=== PATIENT | female | born 1970 | race Caucasian/White ===

== ENCOUNTER → 2017-12-28 13:57 | Outpatient (CLI) | payer OTHER, SELFPAY ==
[2017-12-28 16:07] LABS: Progesterone Level 0.49 ng/mL (See Comment)
[2017-12-28 16:13] LABS: Pregnancy, Serum, hCG Quali. NEGATIVE Negative (0-9 Nonpreg)
== END ==
PROVIDERS: Visit Provider Obstetrics & Gynecology
DX: Z30.430 Encounter for insertion of intrauterine contraceptive device (principal)
CPT/HCPCS: 36415; 84144; 84703

== ENCOUNTER → 2017-12-30 16:46 | Outpatient (CLI) | payer OTHER, SELFPAY ==
[2017-12-30 22:25] LABS: Chlamydia Trachomatis by PCR Negative (Negative); Neisserai gonorrhoeae by PCR Negative (Negative); Probe Check PASS; Sample Adequacy Control PASS; Specimen Processing Control PASS
== END ==
PROVIDERS: Visit Provider Obstetrics & Gynecology
DX: Z11.3 Encounter for screening for infections with a predominantly sexual mode of transmission (principal)
CPT/HCPCS: 87491; 87591

== ENCOUNTER → 2018-09-29 17:28 | Outpatient (CLI) | payer OTHER, SELFPAY ==
[2018-10-04 14:40] LABS: HPV Reflexed? NOT INDICATED
== END ==
PROVIDERS: Family Provider Internal Medicine; PCP Internal Medicine; Referring Provider Obstetrics & Gynecology; Visit Provider Obstetrics & Gynecology
DX: Z12.4 Encounter for screening for malignant neoplasm of cervix (principal)
CPT/HCPCS: 88175; G0145

== ENCOUNTER → 2018-10-22 07:40 | Outpatient (CLI) | payer OTHER, SELFPAY ==
--- NOTE | 2018-10-22 07:45 | BI_ITS ---
MAMMOGRAPHY - BILATERAL SCREENING REASON FOR EXAM: Female, 48 years old. Routine annual screening examination. PERTINENT HISTORY: Grandmother with breast cancer. History of lateral breast reduction surgery TECHNIQUE: Digital bilateral breast brendan (3D mammographic acquisition) in the CC and MLO projections. 2-D mediolateral oblique (MLO) and craniocaudad (CC) views of both breasts were obtained. CAD: Full Field Digital Mammography with Computer Added Detection was performed. COMPARISON: Comparison is made with prior examination March 15, 2012. FINDINGS: Breast Composition: There are scattered areas of fibroglandular density. There are no dominant masses or suspicious calcifications. Since prior study, the amount of breast tissue has decreased in keep with the prior breast reduction. No other significant abnormalities are identified. BI/SCREENING MAMM (CAD), BILAT IMPRESSION: Stable bilateral screening mammogram. Yearly follow-up mammogram recommended. (A) ASSESSMENT CATEGORY: BIRADS Category 1: Negative. A letter regarding these results will be sent to the patient by the facility within 30 days. Approximately 10% of breast cancers are not detected by mammography. A normal mammogram should not delay biopsy of a clinically suspicious abnormality. [id number] Electronically Signed: Andera Schwartz, at 11:00 EDT , Service support ,
== END ==
PROVIDERS: Family Provider Internal Medicine; PCP Internal Medicine; Referring Provider Obstetrics & Gynecology; Visit Provider Obstetrics & Gynecology
DX: Z12.31 Encounter for screening mammogram for malignant neoplasm of breast (principal)
CPT/HCPCS: 77063; 77067

== ENCOUNTER → 2020-03-01 14:53 | Outpatient (CLI) | payer OTHER, SELFPAY ==
[2020-03-01 22:17] LABS: Follicle Stimulating Hormone 5.5 mIU/mL; Luteinizing Hormone 3.7 mIU/mL; Prolactin 14.1 ng/mL
[2020-03-05 18:04] LABS: Testosterone Free 1.9 pg/mL (0.0-4.2)
== END ==
PROVIDERS: Visit Provider Student in an Organized Health Care Education/Training Program
DX: L65.9 Nonscarring hair loss, unspecified (principal)
CPT/HCPCS: 36415; 82627; 83001; 83002; 84146; 84402; 82626

== ENCOUNTER → 2020-03-21 07:37 | Outpatient (CLI) | payer OTHER, SELFPAY ==
--- NOTE | 2020-03-21 07:40 | BI_ITS ---
MAMMOGRAPHY - BILATERAL SCREENING REASON FOR EXAM: Female, 49 years old. Routine annual screening examination. PERTINENT HISTORY: Grandmother with breast cancer. TECHNIQUE: Digital bilateral breast julieta (3D mammographic acquisition) in the CC and MLO projections. 2-D mediolateral oblique (MLO) and craniocaudad (CC) views of both breasts were obtained. CAD: Full Field Digital Mammography with Computer Added Detection was performed. COMPARISON: Comparison is made with prior study dated 10/22/2018. FINDINGS: Breast Composition: There are scattered areas of fibroglandular density. There are no dominant masses or suspicious calcifications. Stable small benign appearing bilateral axillary lymph nodes. No other significant abnormalities are identified. There has been no significant change since the prior study. BI/SCREEN MAMM (CAD) W/JULIETA BILAT IMPRESSION: Stable bilateral screening mammogram. Yearly follow-up mammogram recommended. (A) ASSESSMENT CATEGORY: BIRADS Category 2: Benign. A letter regarding these results will be sent to the patient by the facility within 30 days. Approximately 10% of breast cancers are not detected by mammography. A normal mammogram should not delay biopsy of a clinically suspicious abnormality. [id number] Electronically Signed: Andrea Schwartz, at 9:30 EDT , Service support ,
== END ==
PROVIDERS: PCP Internal Medicine; Referring Provider Student in an Organized Health Care Education/Training Program; Visit Provider Student in an Organized Health Care Education/Training Program
DX: Z12.31 Encounter for screening mammogram for malignant neoplasm of breast (principal); Z80.3 Family history of malignant neoplasm of breast
CPT/HCPCS: 77063; 77067

== ENCOUNTER → 2020-05-31 15:44 | Outpatient (CLI) | payer OTHER, SELFPAY ==
[2020-05-31 17:24] LABS: Color, Urine Straw (Yellow); Glucose, Dipstick Normal (Normal); Ketone-Dipstick Negative (Negative); Leukocyte Esterase-Dipstick Negative /ul (Negative); Nitrite-Dipstick Negative (Negative); Occult Blood-Urine Negative /ul (Negative); Protein-Dipstick Negative (Negative); Urine Bilirubin Dipstick Negative (Negative); Urine Clarity Clear (Clear); Urine Urobilinogen Normal (Normal)
[2020-06-01 08:51] LABS: Bacteria 0 SEEN /hpf (None Seen); Mucous, Urine 0 SEEN /hpf (<or=2+); Red Blood Cells-Urine 0 SEEN /hpf (0-5); White Blood Cells 0 SEEN /hpf (0-5)
[2020-06-01 09:36] LABS: Squamous Epithelial Cells - UA 0-5 SEEN /hpf (5-10)
== END ==
PROVIDERS: PCP Internal Medicine; Visit Provider Obstetrics & Gynecology
DX: N39.3 Stress incontinence (female) (male) (principal)
CPT/HCPCS: 81001; 81002; 87086; 87088

== ENCOUNTER 2020-07-26 07:11 | Day surgery (SDC) | payer OTHER, SELFPAY ==
[2020-07-23 12:02] LABS: Hematocrit 41.5 % (37-47); Hemoglobin 13.8 g/dL (12.0-15.0); Mean Corp Hgb Conc 33.3 g/dL (32-36); Mean Corpuscular Hgb 29.1 pg (27.0-32.0); Mean Corpuscular Volume 87.4 fL (81-99); Mean Platelet Vol. 11.4 fl (6.2-12.0); Platelet Count 285 K/mm3 (150-450); RBC Distribution Width CV 14.9 % (11.6-14.6); RBC Distribution Width SD 45.1 fl (35.1-43.9); Red Blood Count 4.75 M/mm3 (4.2-5.4); White Blood Count 10.1 K/mm3 (4.4-11.0)
[2020-07-26] VITALS (7 sets, daily range): BP systolic 114–126; BP diastolic 53–83; PULSE 69–87; RESP 14–16; TEMP 36.3–36.6; O2SAT 94–100; BMI 32.4
--- NOTE | 2020-07-26 07:30 | HP.PCM_ITS ---
History and Physical Surgical History and Physical Name: AASHISH JENSEN Age: 49 Date of : 1970 Aashish Jensen, a 49 year old female 2 0 0 0 2, presents for Transvaginal tape, cystoscopy. Possible anterior repair, possible posterior repair on July 26, 2020 at 7:30. -- Aashish is 49 yrs old here for evaluation of urinary incontinence onset in the past year, more frequent in the past 3-4 months. In the past 2 months she has become sexually active w/a new partner after being for 6 yrs. Experienced urinary incontinence during IC, which was very upsetting to her. Hx x 2 delivering one 8 # and one 9# baby. MIrena in place; having monthly periods. MEDICATIONS HISTORY: Current medications prescribed by our practice are: 1. Mirena 20 mcg/24 hours (5 yrs) 52 mg intrauterine device, placed 12/30/2017 Patient is also takin. levothyroxine 125 mcg tablet ALLERGIES: No Known Allergies Infections - Chicken pox Illnesses - none Hospitalizations - Childbirth Review of Systems: GENERAL - Denies fever, or chills SKIN - Denies skin changes EYES - Denies visual changes EARS - Denies difficulty hearing NOSE - Denies nasal congestion or bleeding MOUTH - Denies sore throat or difficulty swallowing NECK - Denies pain or swelling RESPIRATORY - Denies shortness of breath or wheezing CARDIOVASCULAR - Denies palpitations or chest pain GASTROINTESTINAL - Denies nausea, vomiting, diarrhea, constipation GENITOURINARY - urinary incontinence MUSCULOSKELETAL - Denies joint or muscle pain NEUROLOGICAL - Denies localized numbness or weakness PSYCHIATRIC - Denies depression or anxiety ENDOCRINE - Denies heat or cold intolerance, weight loss or gain HEMATO-IMMUNOLOGIC - Denies excessive bleeding with cuts SOCIAL HISTORY: Alcohol Use - occasionally Smoking - denies smoking Diet - balanced Diet Exercise - regular Seat Belt Use - always Employer - [employer]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 none ; - PHYSICAL EXAM BP- 104/80 Sitting, Right arm, regular cuff Temp- 97 forehead Weight- 181.70701 lbs Height- 63 inch BMI:32.13 CONSTITUTIONAL - NAD, well nourished, and well developed SKIN - No rash, lesions, or ulcers HEENT - Normocephalic, PERRLA, EOMI NECK - No nodes, no nuchal rigidity and thyroid normal size and texture LYMPH NODES - Palpation of lymph nodes in neck and groins within normal limits LUNGS - CTA x2 without wheezes, crackles or rales CARDIAC - Regular rate and rhythm without rubs, murmurs, or gallops ABDOMEN - Without hepatosplenomegaly, distention, masses, rebound, or guarding; normal bowel sounds; no hernias EXTREMITIES - No edema or calf tenderness NEUROLOGICAL - Cranial nerves II-XII grossly intact PSYCHIATRIC - A and O to time, place, person, mood and affect External Genital Vagina - non-tender without lesions Urethra/Urethral Meatus - positive cough test Bladder - grade 1-2 cystocele Vagina - vaginal summers are pink and moist without loss of rugae and no evidence of atrophy Cervix - without cervical motion tenderness and has normal size and features without evident lesions and IUD strings noted Uterus - 5-6 cm in size, mobile and nontender Adnexa - clear without masses or tenderness Rectal - grade1 rectocele ASSESSMENT/PLAN: 1. Stress Incontinence (female) (male) Pt with leakage when laughs, coughs, sneezes, strains. Pt with no urgency, dysuria, or nocturia. Pos cough test. Post void 50cc. Pt educated on results, elects for TVT with cystoscopy, possible anterior repair, possible posterior repair. R/b/a discussed Stress incontinence
[2020-07-26 07:39] LABS: Internal QC Validated? YES +Cl - CLEAR BKGD; Pregnancy, Urine Negative Negative
[2020-07-26] MEDS: Lactated Ringers 1,000 ML 120 ML IV ×2 (07:57→11:12)
[2020-07-26] MEDS: Cefazolin 2 GM in 0.9% Normal Saline 100 ML IV (09:05)
[2020-07-26] MEDS: Lidocaine 1% /Epi 1:100 (20ml) 20 ML Vial (09:12)
--- NOTE | 2020-07-26 10:23 | DCINST_ITS ---
Discharge Diet: No Restrictions Discharge Activity: Return to Normal Activity, May Not Drive, May not drive while taking narcotic pain medications., May Shower, - - no tub baths for 2 weeks May resume sexual activity in: 4-6 weeks Lifting Restrictions: no lifting over 25 pounds for 2 weeks Call your doctor if your incision/area has: Continuous Slow Oozing, Foul Smelling Discharge Call your doctor if you observe: Fever of 101 or Higher, Shortness of breath, Chest pain Allergies/Adverse Reactions: Allergies No Known Allergies Allergy (Verified 07/19/20 10:30) Medications to take at Discharge Levothyroxine [Synthroid] 175 mcg PO DAILY 07/19/20 Primary Care Physician: Anupama Montemayor DO [Primary Care Provider] - Test Results: Test results from this visit will be discussed in further detail at your follow- up appointment, if applicable. Please Follow Up With: Sergio Gunter MD When: 2 weeks
--- NOTE | 2020-07-26 10:25 | OP.PCM_ITS ---
Report of Operation Date of Procedure: 07/26/20 Pre-Operative Diagnosis: Stress urinary incontinence Post-Operative Diagnosis: Stress urinary incontinence Surgery/Procedure Performed:: Transvaginal tape, cystoscopy Description of Surgical Findings:: Surgeon: Sergio Gunter MD Anesthesia: MAC EBL: 25 cc Urine output: 100 cc IV fluids: 900 cc Complications: None Specimens: None Findings: Minimal cystocele, minimal rectocele. No apical prolapse. After trocar placement cystoscopy was performed no perforations or pathology were noted. Consent: Patient with stress urinary incontinence in need of transvaginal tape and cystoscopy. Patient understands the risk of the procedure include but are not limited to visceral or vascular injury, prolonged hospitalization, blood loss need for transfusion, reoperation. Patient also understands the risk of transvaginal mesh along with need for Murphy catheter or long-term intermittent catheterization. Patient states understanding and wishes to proceed. All questions were answered consent was signed. Procedure: Patient was brought back to the OR where MAC anesthesia was found to be adequate. 2 g of Ancef were given for infection prophylaxis. Patient was prepared and draped in dorsolithotomy position in [facility] stirrups. Murphy catheter was inserted bladder was drained. Vaginal mucosa was injected with 1% lidocaine with epinephrine. 1-1/2 cm vaginal mucosa incision was made 1 cm cep halad to the urethra in the midline. Vaginal mucosa was dissected from the periurethral fascia and dissection was created retropubically. Midline of the pubis was palpated and 2 stab incisions were made at the superior aspect of the pubic bone 2 cm bilaterally from the midline. Murphy catheter stylette was inserted and bladder was deviated to the patient's left right mesh Gyne TVT exact trocar was inserted at site of dissection trocar was inserted along the posterior aspect of the pubic bone through the suprapubic stab incision. In similar fashion the bladder was deviated to the right and the left trocar was placed posterior to the pubic bone through vaginal dissection and through the the suprapubic skin incision. Murphy catheter was removed and cystoscopy was performed. Above findings were noted. No signs of trocar perforation pathology or mesh. Bladder was drained. Trochars were removed and and transvaginal tape was appropriately placed. Good hemostasis was noted. Vaginal mucosa was closed in a continuous running locked fashion. Mesh at suprapubic skin incisions was cut at the level of the skin. And incisions were closed with skin adhesive. Good hemostasis was noted. All counts correct x2. Patient tolerated procedure well was brought to recovery in stable condition. golf course ranger: Taina Lu
== END 2020-07-26 12:01 | disposition home or self-care (01) ==
LOC: SDC 07:12 → AC 07:13
PROVIDERS: Anesthesiology; PCP Internal Medicine; Referring Provider Obstetrics & Gynecology; Visit Provider Obstetrics & Gynecology
PROC: (CPT 57260; principal; 2020-07-26 08:25)
DX: N39.3 Stress incontinence (female) (male) (principal)
CPT/HCPCS: 52000; 57288; 36415; 81025; 85027; 86850; 86900; 86901; J7120; J2405

== ENCOUNTER → 2020-09-18 09:29 | Outpatient (CLI) | payer OTHER, SELFPAY ==
[2020-07-26 07:39] VITALS: BMI 32.4
--- NOTE | 2020-09-18 09:33 | RAD_ITS ---
STUDY: X-RAY - PELVIS AND BILATERAL HIPS REASON FOR EXAM: Female, 49 years old. Bilateral hip pain. TECHNIQUE: AP view of the pelvis.? 2 views of the right hip, and 2 views of the left hip were obtained. COMPARISON: None. FINDINGS: There is a non-specific bowel gas pattern. IUD. Phleboliths. Normal bilateral iliac wings, sacroiliac joints and visualized sacrum. Normal bilateral superior and inferior pubic rami. Normal pubic symphysis. Normal bilateral ischial tuberosities. Normal visualized right femoral head. Normal right acetabulum. Normal right hip joint. Normal visualized left femoral head. Normal left acetabulum. Normal left hip joint. RAD/Hips B/L min 2 views w/ Pelvis IMPRESSION: No abnormality of the pelvis or either hip. Electronically Signed: Kameron Smith MD at 15:07 EDT , Service support ,
--- NOTE | 2020-09-18 09:35 | RAD_ITS ---
STUDY: X-RAY - LUMBAR SPINE REASON FOR EXAM: Female, 49 years old. Hip pain. TECHNIQUE: 4 view(s) of the lumbar spine were obtained. COMPARISON: None FINDINGS: Normal lumbar lordosis. There is no substantial scoliosis. There is a normal alignment of the vertebrae. Normal vertebral bodies and endplates. Diffuse facet sclerosis. Mild intervertebral disc space narrowing at L2-3 and L3-4 with small osteophytes. The soft tissue structures are unremarkable. RAD/L/S Spine Min 4 Views IMPRESSION: Mild lumbar spondylosis at L2-3 and L3-4 Electronically Signed: Kameron Smith MD at 15:08 EDT , Service support ,
== END ==
PROVIDERS: PCP Internal Medicine; Referring Provider Internal Medicine; Visit Provider Internal Medicine
DX: M25.551 Pain in right hip (principal); M25.552 Pain in left hip
CPT/HCPCS: 72110; 73521

== ENCOUNTER → 2021-01-04 09:04 | Outpatient (CLI) | payer OTHER, SELFPAY ==
[2020-07-26 07:39] VITALS: BMI 32.4
--- NOTE | 2021-01-04 09:15 | RAD_ITS ---
STUDY: X-RAY - RIGHT SHOULDER REASON FOR EXAM: Female, 50 years old. PAIN IN SHOULDER TECHNIQUE: 4 view(s) of the shoulder. COMPARISON: None. FINDINGS: No acute fracture, dislocation or osseous destruction. Minimal glenohumeral joint arthrosis. Mild acromioclavicular joint arthrosis. No significant soft tissue swelling. RAD/Shoulder min 2 Views IMPRESSION: Right shoulder intact with mild osteoarthritis Electronically Signed: Jcarlos Vines DO at 10:15 EDT Tel , Service support ,
== END ==
PROVIDERS: PCP Internal Medicine; Referring Provider Internal Medicine; Visit Provider Internal Medicine
DX: M25.511 Pain in right shoulder (principal)
CPT/HCPCS: 73030

== ENCOUNTER → 2021-04-30 07:16 | Outpatient (CLI) | payer OTHER, SELFPAY ==
--- NOTE | 2021-04-30 07:32 | MRI_ITS ---
EXAM: MR CERVICAL SPINE WITHOUT INTRAVENOUS CONTRAST CLINICAL INDICATION: RADICULOPATHY, rt sided neck pain, rt arm pain/numbness TECHNIQUE: Multiplanar and multisequence MR images of the cervical spine without intravenous contrast were performed. This report was created using [email or web address] report [employer] technology. COMPARISON: None. FINDINGS: VERTEBRAE: Unremarkable. Normal vertebral bodies and posterior elements. Normal alignment. Normal craniocervical junction and cervicothoracic junction. No spondylolisthesis. There is preservation of the normal cervical lordosis. SPINAL CORD: Unremarkable in signal and morphology. SOFT TISSUES: Unremarkable. No prevertebral soft tissue swelling. LYMPH NODES: Unremarkable. There is no cervical adenopathy. DISCS/SPINAL CANAL/NEURAL FORAMINA: C2-C3: Unremarkable. Normal disc height and morphology. Normal spinal canal and neuroforamina. C3-C4: Unremarkable. Normal disc height and morphology. Normal spinal canal and neuroforamina. C4-C5: Unremarkable. Normal disc height and morphology. Normal spinal canal and neuroforamina. C5-C6: Unremarkable. Normal disc height and morphology. Normal spinal canal and neuroforamina. C6-C7: C6-7. Posterior disc extrusion. Extruded disc measures 6 x 4.3 mm. It extends superiorly along C6 and inferiorly along C7. There is impression upon anterior thecal sac. Mild spinal stenosis. Right neural foraminal stenosis with compression of exiting right nerve root. C7-T1: Unremarkable. Normal disc height and morphology. Normal spinal canal and neuroforamina. MRI/Spine Cervical (Routine) IMPRESSION: C6-7. Posterior disc extrusion. Extruded disc measures 6 x 4.3 mm. It extends superiorly along C6 and inferiorly along C7. There is impression upon anterior thecal sac. Mild spinal stenosis. Right neural foraminal stenosis with compression of exiting right nerve root. Electronically Signed: Julian Terrazas MD at 17:33 EST , Service support ,
== END ==
PROVIDERS: PCP Internal Medicine; Referring Provider Internal Medicine; Visit Provider Internal Medicine
DX: M54.12 Radiculopathy, cervical region (principal)
CPT/HCPCS: 72141

== ENCOUNTER 2021-07-17 18:00 | Outpatient (RCR) | payer SELFPAY | END 2021-07-17 19:00 | disposition home or self-care (01) | LOC: PT 18:00 | PROVIDERS: PCP Internal Medicine | DX: Z00.00 Encounter for general adult medical examination without abnormal findings (principal) ==

== ENCOUNTER 2021-07-18 11:27 | Outpatient (CLI) | payer OTHER, SELFPAY ==
[2021-07-18 12:08] LABS: Hematocrit 42.4 % (37-47); Hemoglobin 14.4 g/dL (12.0-15.0); Mean Corpuscular Hgb 28.1 pg (27.0-32.0); Mean Corpuscular Volume 82.8 fL (81-99); Mean Platelet Vol. 11.1 fl (6.2-12.0); Platelet Count 332 K/mm3 (150-450); RBC Distribution Width CV 14.2 % (11.6-14.6); RBC Distribution Width SD 42.6 fl (35.1-43.9); Red Blood Count 5.12 M/mm3 (4.2-5.4); White Blood Count 11.8 K/mm3 (4.4-11.0)
[2021-07-18 13:45] LABS: Follicle Stimulating Hormone 9.2 mIU/mL; Luteinizing Hormone 5.1 mIU/mL; T4 Free Direct 0.53 ng/dL (0.76-1.46)
[2021-07-24 14:12] LABS: HPV APTIMA, High Risk Negative (Negative)
== END 2021-07-18 23:59 | disposition home or self-care (01) ==
LOC: WOBLAB 11:29
PROVIDERS: PCP Internal Medicine; Visit Provider Obstetrics & Gynecology
DX: Z12.4 Encounter for screening for malignant neoplasm of cervix (principal); N93.9 Abnormal uterine and vaginal bleeding, unspecified
CPT/HCPCS: 36415; 82670; 83001; 83002; 84439; 84443; 85027; 87624; 88175; G0145

== ENCOUNTER 2021-08-13 10:53 | Outpatient (CLI) | payer OTHER, SELFPAY ==
--- NOTE | 2021-08-13 10:50 | EMB_PTH ---
PATIENT: AASHISH MUSTAFA LOC: [facility] U#:[id number] AGE/SX: 50/F ROOM: RE08/13/[address]: Dr. Sergio Gunter MD : 1970 BED: DIS: 08/13/2021 SPEC #: [id number] RECD: 08/13/21 13:15 STATUS: ERI REQ #: [id number] TAYLOR: 08/13/21 10:[address]: Sergio Gunter DEPT: SURGICAL PATHOLOGY RECD BY: Shalonda Ariza ENTERED: 08/13/21 15:25 SP TYPE: ENDOM BX/C SOWMYA DR: Dr. Anupama Montemayor, DO Tissues: Endometrium, NOS Procedures: Surgery Specimen Level IV HEADER OPERATION: Endometrial biopsy PRE-OP DIAGNOSIS: Abnormal uterine bleeding TISSUE SUBMITTED: Endometrial biopsy MICROSCOPIC DIAGNOSIS Endometrial biopsy: Secretory endometrium. SJ:efrain 08/14/2021 MICROSCOPIC DESCRIPTION Slides are reviewed. GROSS DESCRIPTION Received in fixative is one container labeled with the patient's name and designated endometrial biopsy. The specimen consists of multiple irregular fragments of pink soft tissue that in aggregate measure 2 x 1.5 x 0.2 cm. The specimen is totally submitted in one cassette. / SJ:efrain 08/13/2021 TC:4 CPT: 09689
[2021-08-13 13:36] LABS: Free T3 3.2 pg/mL (2.18-3.98); T4 Free Direct 1.51 ng/dL (0.76-1.46); T4 Total, Thyroxin 14.2 ug/dL (4.8-13.9); Thyroid Stim Hormone (TSH) 0.15 uIU/mL (0.358-3.74)
== END 2021-08-13 23:59 | disposition home or self-care (01) ==
LOC: WOBLAB 10:54
PROVIDERS: PCP Internal Medicine; Visit Provider Obstetrics & Gynecology
DX: N93.9 Abnormal uterine and vaginal bleeding, unspecified (principal); E03.9 Hypothyroidism, unspecified
CPT/HCPCS: 36415; 84436; 84439; 84443; 84481; 88305

== ENCOUNTER 2021-11-07 12:40 | Day surgery (SDC) | payer OTHER, SELFPAY ==
[2021-11-07] VITALS (22 sets, daily range): BP systolic 69–114; BP diastolic 48–81; PULSE 45–78; RESP 16–18; TEMP 36.2–37; O2SAT 97–100; BMI 34.7
--- NOTE | 2021-11-07 12:52 | PCM.HP.BLA ---
History and Physical Date of Admission: 11/07/21 Surgical History and Physical Date: 11/07/2021 Name: AASHISH JENSEN Age: 51 Date of : 1970 Aashish Jensen, a 51 year old female 2 0 0 0 2, presents for Hysteroscopy D, Endometrial ablation on 11/07/21 at 1:30. -- Aashish is here today for her pre-op visit. Surgery scheduled for 11/07/21- D, Mulu. LMP-10/12/21. No complaints or concerns voiced at this time. Educational material given. Hospital packet given. Wash script given. Consent signed. Allergies and medications up to date with no change in medical or surgical hx. MEDICATIONS HISTORY: Current medications prescribed by our practice are: 1. Mirena 20 mcg/24 hours (5 yrs) 52 mg intrauterine device, placed 12/30/2017 Patient is also takin. levothyroxine 125 mcg tablet ALLERGIES: No Known Allergies Infections - Chicken pox Illnesses - none Hospitalizations - Childbirth Review of Systems: GENERAL - Denies fever, or chills SKIN - Denies skin changes EYES - Denies visual changes EARS - Denies difficulty hearing NOSE - Denies nasal congestion or bleeding MOUTH - Denies sore throat or difficulty swallowing NECK - Denies pain or swelling RESPIRATORY - Denies shortness of breath or wheezing CARDIOVASCULAR - Denies palpitations or chest pain GASTROINTESTINAL - Denies nausea, vomiting, diarrhea, constipation GENITOURINARY - Denies dysuria, frequency of urination, incontinence of urine MUSCULOSKELETAL - Denies joint or muscle pain NEUROLOGICAL - Denies localized numbness or weakness PSYCHIATRIC - Denies depression or anxiety ENDOCRINE - Denies heat or cold intolerance, weight loss or gain HEMATO-IMMUNOLOGIC - Denies excessive bleeding with cuts SOCIAL HISTORY: Alcohol Use - occasionally Smoking - denies smoking Diet - balanced Diet Exercise - regular Seat Belt Use - always 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 07/26/2020 TVT, cystoscopy ; Sergio Gunter MD - PHYSICAL EXAM BP- 118/64 Sitting, Right arm, regular cuff Weight- 181.09500 lbs Height- 63 inch BMI:[id number] CONSTITUTIONAL - NAD, well nourished, and well developed SKIN - No rash, lesions, or ulcers HEENT - Normocephalic, PERRLA, EOMI NECK - No nodes, no nuchal rigidity and thyroid normal size and texture BREAST - No dominant masses, no tenderness, no axillary adenopathy, no nipple discharge, no skin changes ABDOMEN - Without hepatosplenomegaly, distention, masses, rebound, or guarding; normal bowel sounds; no hernias EXTREMITIES - No edema or calf tenderness NEUROLOGICAL - Cranial nerves II-XII grossly intact PSYCHIATRIC - A and O to time, place, person, mood and affect External Genital Vagina - non-tender without lesions Urethra/Urethral Meatus - non-tender Bladder - non-tender Vagina - vaginal summers are pink and moist without loss of rugae and no evidence of atrophy Cervix - without cervical motion tenderness and has normal size and features without evident lesions and IUD strings noted Uterus - 5-6 cm in size, mobile and nontender Adnexa - clear without masses or tenderness ASSESSMENT/PLAN: 2. Abnormal Uterine And Vaginal Bleeding, Unspecified Patient currently with Mirena IUD for abnormal uterine bleeding, regular but very heavy painful periods. Patient has not noticed improvement with Mirena and bleeding large burden U/s with 9cm uterus, two submucosal fibroids 1-2cm Labs performed. EMB negative. Educated patient on findings including fibroids, discussed treatment options elects for endometrial ablation. Understands increased risk of failure with fibroids for hysteroscopy D&C, Removal of IUD and ablation 3. Encounter For Other Preprocedural Examination Pt scheduled for hysteroscopy D, Removal of IUD and ablation Educated pt on r/b/a, pt states understanding and wishes to proceed, all questions answered and consent was signed educated on post operative recovery follow up 2 weeks postoperatively
[2021-11-07 13:35] LABS: Internal QC Validated? YES +Cl - CLEAR BKGD
[2021-11-07 13:36] LABS: Pregnancy, Urine Negative Negative
[2021-11-07] MEDS: Lactated Ringers 1,000 ML 15 ML IV (13:39)
--- NOTE | 2021-11-07 14:38 | DCINST_ITS ---
Discharge Instructions Diet Discharge Diet: No restrictions Activity Discharge Activity: Return to Normal Activity, May Drive and May Shower May resume sexual activity in: 4-6 weeks Weight Bearing Status: Weight bearing as tolerated Dressing / Incision Call your doctor if your incision/area has: Continuous Slow Oozing and Foul Smelling Discharge Call your doctor if you observe: Fever of 101 or Higher, Shortness of breath and Chest pain Follow Up Care Please Follow Up With: Sergio Gunter MD When: 2 weeks postoperatively Test Results: Test results from this visit will be discussed in further detail at your follow- up appointment, if applicable. Discharge Plan Admission Attending Provider: Sergio Gunter Primary Care Provider: Anupama Montemayor Discharge Orders/Prescriptions Prescriptions: No Action levothyroxine 175 MCG tablet 175 mcg PO DAILY Referrals / Follow Up: Anupama Montemayor DO [Primary Care Provider] - Disposition Disposition (needs filled in before D/C Order can be placed): Home, Self Care
--- NOTE | 2021-11-07 14:39 | OP.PCM_ITS ---
Report of Operation Date of Procedure: 11/07/21 Pre-Operative Diagnosis: Abnormal uterine bleeding Post-Operative Diagnosis: Abnormal uterine bleeding Surgery/Procedure Performed:: Exam under anesthesia, IUD removal, hysteroscopy, endometrial ablation via Mulu Description of Surgical Findings:: Surgeon: Sergio Gunter MD Anesthesia: MAC EBL: 10 cc Urine output: 25 cc IV fluids: 400 cc Complications: None Specimen: None Findings: No pathology noted on preprocedure hysteroscopy. Post procedure hysteroscopy with no new pathology. Uterine cavity was found to be 5 cm. Mulu ablation 120 seconds Consent: Patient with abnormal uterine bleeding desires IUD removal, hysteroscopy, endometrial ablation via Mulu. Patient understands the risk of the procedure include but are not limited to visceral or vascular injury, prolonged hos pitalization, blood loss and need for transfusion, reoperation. Patient stated understanding and wish to proceed. All questions were answered and consent was signed. Procedure: Patient brought back to the OR where MAC anesthesia was found to be adequate. Patient was prepared and draped in a dorsolithotomy position with yellowfin stirrups. A weighted speculum is placed in the posterior aspect of the vagina. IUD removed. Cervical dilators were used to dilate the cervix. Hysteroscope was inserted and above findings were noted. Uterine cavity was found to be 5 cm. Mulu device inserted under direct visualization. Safety tests past. Mulu ablation for 120 seconds was performed. Mulu device was removed under direct visualization. Post procedure hysteroscopy with above findings. Good hemostasis was noted. All counts were correct x2. Patient tolerated procedure well and was brought to recovery in stable condition.
[2021-11-07] MEDS: oxyCODONE 5 MG Tablet PO (15:00)
[2021-11-07] MEDS: Acetaminophen 500 MG Tablet 1000 MG PO (15:00)
--- NOTE | 2021-11-07 15:27 | EKG12_ITS ---
Test Reason : BENY Blood Pressure : / mmHG Vent. Rate : 051 BPM Atrial Rate : 051 BPM P-R Int : 176 ms QRS Dur : 082 ms QT Int : 444 ms P-R-T Axes : 051 064 020 degrees QTc Int : 409 ms Sinus bradycardia Low voltage QRS Borderline ECG No previous ECGs available Confirmed by AGUILA RANGEL, ALLISON ([id number]), editor magazine DINAH HICKMAN ([id number]) on 11/12/2021 8:57:01 AM Referred By: Confirmed By:ALLISON SEHEHAN MD
[2021-11-07] MEDS: Ketorolac 30 MG/ML Syringe IV (15:47)
--- NOTE | 2021-11-07 16:48 | SUR.PHASEI ---
Addendum entered by Makenzie Medrano 11/07/21 17:06: 1620 pt placed in semi fowlers. Original Note: 1450 pt has no IV due to it fell out in OR. pt alert and oriented. head of bed elevated. pt talkative. 1500 pt medicated for pain with oral meds. 1505 pt reported pain worsening. feels crampy to lower abdomen. abimbola pad dry. abdomen soft. pt reports lightheadedness. pulse rate 30s-40s. pt placed in trendelenberg. anesthesia called. 1515 iv started in right a/c and left hand. LR fluid bolus started. pt awake. answering questions appropriately. ordered EKG. [address] Huddleston present. ekg sinus da. no new orders. 1548 c/o abdominal cramping. toradol given iv per order. 1640 1000ml LR infused. pt alert. b/p with in 20% baseline pre op. pt in semi folwers. no dizziness.
== END 2021-11-07 17:30 | disposition home or self-care (01) ==
LOC: SDC 12:44 → AC 12:45
PROVIDERS: Anesthesiology; PCP Internal Medicine; Visit Provider Obstetrics & Gynecology
PROC: 0U5B8ZZ Destruction of Endometrium, Via Natural or Artificial Opening Endoscopic (ICD-10-PCS; CPT 58558; principal; 2021-11-07 14:25)
DX: D25.9 Leiomyoma of uterus, unspecified (principal); N93.9 Abnormal uterine and vaginal bleeding, unspecified; N92.0 Excessive and frequent menstruation with regular cycle; Z97.3 Presence of spectacles and contact lenses; E07.9 Disorder of thyroid, unspecified
CPT/HCPCS: 58301; 58563; 00940; 81025; 93005; J7120; J2405

== ENCOUNTER → 2023-03-26 | Outpatient (CLI) | payer OTHER, SELFPAY ==
--- NOTE | 2023-03-26 07:43 | BI_ITS ---
MAMMOGRAPHY - BILATERAL SCREENING REASON FOR EXAM: Female, 52 years old. Routine annual screening examination. PERTINENT HISTORY: Grandmother with breast cancer. History of prior bilateral breast reduction surgery. TECHNIQUE: Digital bilateral breast julieta (3D mammographic acquisition) in the CC and MLO projections. 2-D mediolateral oblique (MLO) and craniocaudad (CC) views of both breasts were obtained. CAD: Full Field Digital Mammography with Computer Added Detection was performed. COMPARISON: Comparison is made with prior study dated March 13, 2020 and October 22, 2018. FINDINGS: Breast Composition: There are scattered areas of fibroglandular density. There are no dominant masses or suspicious calcifications. Stable bilateral axillary lymph nodes. No other significant abnormalities are identified. There has been no significant change since the prior study. BI/SCRN MAMM (CAD)W/JULIETA BILAT IMPRESSION: Stable bilateral screening mammogram. Yearly follow-up mammogram recommended. (A) ASSESSMENT CATEGORY: BIRADS Category 2: Benign. A letter regarding these results will be sent to the patient by the facility within 30 days. Approximately 10% of breast cancers are not detected by mammography. A normal mammogram should not delay biopsy of a clinically suspicious abnormality. [id number] Electronically Signed: Andrea Schwartz MD at 9:01 EDT ,
== END | disposition home or self-care (01) ==
LOC: OPBI 07:42
PROVIDERS: PCP Internal Medicine; Referring Provider Internal Medicine; Visit Provider Internal Medicine
DX: Z12.31 Encounter for screening mammogram for malignant neoplasm of breast (principal); Z80.3 Family history of malignant neoplasm of breast
CPT/HCPCS: 77063; 77067

== ENCOUNTER → 2024-04-05 | Outpatient (CLI) | payer OTHER, SELFPAY | END | disposition home or self-care (01) | LOC: MRI 12:40 | PROVIDERS: PCP Internal Medicine; Referring Provider Internal Medicine; Visit Provider Internal Medicine | DX: R51.9 Headache, unspecified (principal) | CPT/HCPCS: 70553; A9575 ==

== ENCOUNTER → 2024-04-19 | Outpatient (CLI) | payer OTHER, SELFPAY ==
--- NOTE | 2024-04-19 09:53 | BI_ITS ---
MAMMOGRAPHY - BILATERAL SCREENING 3-D TOMOSYNTHESIS REASON FOR EXAM: Female, 53 years old. Bilat Brst Screen Jluieta Add-On -- Encounter for screening mammogram for malignant neoplasm of breas PERTINENT HISTORY: No significant family history. TECHNIQUE: 2-D mammograms and 3-D Tomosynthesis of the breast (s) were performed. CAD was performed. COMPARISON: 03/26/2023 FINDINGS: The breast composition is composed of scattered fibroglandular density. Scattered benign calcifications are seen. No dense spiculated masses or suspicious microcalcifications are identified. No architectural distortion is identified. There is no skin thickening or retraction. There has been no significant change since the prior study. BI/SCRN MAMM (CAD)W/JULIETA BILAT IMPRESSION: No mammographic signs of malignancy. Routine yearly mammograms recommended. ASSESSMENT CATEGORY: BIRADS Category 1: Negative. A letter regarding these results will be sent to the patient by the facility within 30 days. FOLLOW UP RECOMMENDATION: Yearly follow up mammogram recommended. (A) Approximately 10% of breast cancers are not detected by mammography. A normal mammogram should not delay biopsy of a clinically suspicious abnormality. Electronically Signed: Felice Markham MD at 15:49 EST ,
--- NOTE | 2024-04-19 09:57 | BD_ITS ---
STUDY: DUAL ENERGY X-RAY ABSORPTIOMETRY / DXA REASON FOR EXAM: Female, 53 years old. [id number] TECHNIQUE: Bone Mineral Density (BMD) measurements of lumbar spine and bilateral hips were obtained. COMPARISON: None. FINDINGS: Lumbar Spine (L1-L4): g/cm2 (1.042) / T-score (0.0) / Z-score (0.9) Findings are suggestive of normal bone density with a low fracture risk. Left Femur Total: g/cm2 (0.932) / T-score (-0.1) / Z-score (0.5) Left Femoral Neck: g/cm2 (0.745) / T-score (-0.9) / Z-score (0.0) Right Femur Total: g/cm2 (0.879) / T-score (-0.5) / Z-score (0.1) Right Femoral Neck: g/cm2 (0.795) / T-score (-0.5) / Z-score (0.5) BD/Dexa Bone Density Study IMPRESSION: The patient is considered normal as outlined below according to World Prashanth Organization (WHO) criteria with a low fracture risk. Reference Information: The T-score is the number of standard deviations above or below the standard which is normal for young adults at their peak bone mineral density. The World Health Organization (WHO) interprets the T-scores as follows: Above -1 Normal bone density Between -1 and -2.5 Osteopenia Equal to / or below -2.5 Osteoporosis As a practical clinical guideline, osteopenia may be graded as follows: Mild -1 through -1.5 Moderate -1.6 through -2.0 Severe -2.1 through -2.4 The Z-score is the number of standard deviations above or below age-matched controls. A Z-score of less than -1.5 would be considered abnormal. References: 1. NIH Osteoporosis and Related Bone Diseases www osteo.org 2. International Society for Clinical Densitometry www iscd.org 3. National Osteoporosis Foundation www nof.org Electronically Signed: Andrea Schwartz MD at 9:03 EST ,
== END | disposition home or self-care (01) ==
LOC: OPBD 09:52
PROVIDERS: PCP Internal Medicine; Referring Provider Internal Medicine; Visit Provider Internal Medicine
DX: Z12.31 Encounter for screening mammogram for malignant neoplasm of breast (principal); Z78.0 Asymptomatic menopausal state
CPT/HCPCS: 77063; 77067; 77080

== ENCOUNTER 2024-10-20 07:30 | Outpatient (RCR) | payer OTHER, SELFPAY ==
--- NOTE | 2024-09-27 09:38 | HP.PTEVAL ---
Patient's Visit Information Visit Information Visit Information: AASHISH MUSTAFA is a 53 year old F referred to Physical Therapy by Dr. Anupama Montemayor DO with a diagnosis of cervical radicuopathy. Date of Evaluation: 09/27/24 Physical Therapist: LUCI Andersen Visit Plan Frequency: 1-2x /Week Duration: 2 Months Plan: Possible R shoulder impingement in addition to the C6/C7 disc extrusion on MRI from 2 years ago 1-2X/ week for 8 weeks for progressive centralization of sx (currently can tolerated 3 X 5 sitting chin tucks), scapular retraction strength, postural exercises, R RC strength with HEP. (+ impingement sign on the R) HEP: seated chin tucks 3 X 5, blue mid rows with down and back scapular retraction, corner pec stretch Subjective Subjective: She injured her neck about 2 years ago and it was bad and she got steroid and Gabapetin and it worked. She has pain down her R arm and into her pointer finger. She has not worked out since her neck and has not been able to lift. It has never been good as far as working out but it was better without the numbness but now it is coming and going. She has off and on neck pain with movements and will bring on the arm pain down to the fingers and her arm can stay numb if she turns the wrong way her arm will stay numb for an hour or so. She is R handed. She has to sleep on her back and has to sleep propped up. She is not feeling any weakness in her R arm. MRI shows C6-C7 disc extrusion Pain Neck pain: Pain Intensity (Out of 10): 0 R shoulder pain: Pain Intensity (Out of 10): 0 Objective Objective: R handed R director of head start strength 95 and L 81 C-spine AROM: flexion 75%, Ext 75%, Rot R 75% and Rot L 100%, SB B 75% C-spine repeated chin tucks in sitting 3 X 5 (when goes back into chin tuck she feels pain in her R shoulder blade but it stops when she comes out of the chin tuck). After an additional 3 X 5 sitting chin tucks had the pt try them in supine but it started to increase tingling in the fingers so we stopped UE MMT: Full flexion but painful at end range and same with abduction on the R. Full pain free flex and abd on the L. IR on the R was to T12 and L T8 and full B shoulder ER UE MMT: R shoulder flexion 15.8 and L 17.3 R shoulder ABD 18.4 and L 19.2 R shoulder ER 18.2 and L 15 R shoulder IR 18.1 and L 20 + R shoulder impingement adonay. + Empty can for pain and slight weakness on the R. Balance/Special Test Scores Oswestry Neck Score: 8 Goals Goal 1:: I HEP Goal Time Frame: 6-8 Weeks Goal 2:: Decrease freq of R shoulder pain with reaching and ADL's Goal Time Frame: 6-8 Weeks Goal 3:: Sit with upright posture and retracted shoulders Goal Time Frame: 6-8 Weeks Goal 4:: Increase R shoulder strength (at the time of the eval: UE MMT: R shoulder flexion 15.8 and L 17.3 R shoulder ABD 18.4 and L 19.2 R shoulder ER 18.2 and L 15 R shoulder IR 18.1 and L 20). Goal Time Frame: 6-8 Weeks Rehabilitation Potential Rehabilitation Potential: Good Anticipated Interventions Patient/Client Instruction: Educate patient on: Condition and Plan of Care For the Purpose of:: To decrease pain, To decrease swelling/inflammation, To increase ROM, To improve nutrient delivery to tissue, To improve muscle performance and motor function, To improve ability to perform ADL's, To increase tolerance to activity/condition/position, To improve performance and independence with ADL's, To improve ability of physical actions for home/community/work/leisure, To improve health of tissue, To decrease soft tissue restriction and To increase flexibility/ROM Therapeutic Exercise to Include: Strength training, Postural training, Flexibilty training, Neuromotor development, Passive ROM, Active ROM, Dynamic Lumbar Stabilization, Jose Exercises and Scapular Strength/Stabilization For the Purpose of:: To decrease pain, To increase ROM, To improve nutrient delivery to tissue, To improve ability to perform ADL's, To improve performance and independence with ADL's, To improve ability of physical actions for home/community/work/leisure, To improve health of tissue and To decrease soft tissue restriction Manual Therapy Techniques to Include: Mobilization, Passive ROM and Soft tissue mobilization For the Purpose of:: To decrease pain, To increase ROM, To improve nutrient delivery to tissue, To improve muscle performance and motor function, To improve ability to perform ADL's, To increase tolerance to activity/condition/position, To improve performance and independence with ADL's, To decrease level of supervision to perform tasks, To improve ability of physical actions for home/community/work/leisure, To improve health of tissue, To decrease soft tissue restriction and To increase flexibility/ROM Other electric stimulation: Yes Cryotherapy (ice pack, ice massage): Yes Thermo therapy (hot pack): Yes Ultrasound (thermal/non thermal): Yes For the Purpose of:: To decrease pain, To increase ROM, To increase oxygenation perfusion, To improve muscle performance and motor function, To improve ability to perform ADL's, To increase tolerance to activity/condition/position, To improve performance and independence with ADL's, To improve health of tissue, To decrease soft tissue restriction and To increase flexibility/ROM Text: Thank you for the opportunity to evaluate your patient. For Medicare and Medicare HMO plans, please review the plan of care and approve it. It will need to be FAXED BACK to us at [phone] for Medicare purposes. For Medicare only, by signing this I certify the plan of care. Please let me know if there are questions or concerns regarding this plan of care. Physician Signature: Date:
--- NOTE | 2025-01-30 14:05 | HP.PTDCNRP_ITS ---
Patient Information Patient Information: AASHISH MUSTAFA was seen in my office for initial evaluation on 09/27/24. The following Plan of Care was established for this patient: POC Established Initial Frequency: 1-2x /Week Initial Duration: 2 Months Anticipated Interventions Patient/Client Instruction: Educate patient on: Condition and Plan of Care For the Purpose of:: To decrease pain, To decrease swelling/inflammation, To increase ROM, To improve nutrient delivery to tissue, To improve muscle performance and motor function, To improve ability to perform ADL's, To increase tolerance to activity/condition/position, To improve performance and independence with ADL's, To improve ability of physical actions for home/community/work/leisure, To improve health of tissue, To decrease soft tissue restriction and To increase flexibility/ROM Therapeutic Exercise to Include: Strength training, Postural training, Flexibilty training, Neuromotor development, Passive ROM, Active ROM, Dynamic Lumbar Stabilization, Jose Exercises and Scapular Strength/Stabilization For the Purpose of:: To decrease pain, To increase ROM, To improve nutrient delivery to tissue, To improve ability to perform ADL's, To improve performance and independence with ADL's, To improve ability of physical actions for home/community/work/leisure, To improve health of tissue and To decrease soft tissue restriction Manual Therapy Techniques to Include: Mobilization, Passive ROM and Soft tissue mobilization For the Purpose of:: To decrease pain, To increase ROM, To improve nutrient delivery to tissue, To improve muscle performance and motor function, To improve ability to perform ADL's, To increase tolerance to activity/condition/position, To improve performance and independence with ADL's, To decrease level of supervision to perform tasks, To improve ability of physical actions for home /community/work/leisure, To improve health of tissue, To decrease soft tissue restriction and To increase flexibility/ROM Other electric stimulation: Yes Cryotherapy (ice pack, ice massage): Yes Thermo therapy (hot pack): Yes Ultrasound (thermal/non thermal): Yes For the Purpose of:: To decrease pain, To increase ROM, To increase oxygenation perfusion, To improve muscle performance and motor function, To improve ability to perform ADL's, To increase tolerance to activity/condition/position, To improve performance and independence with ADL's, To improve health of tissue, To decrease soft tissue restriction and To increase flexibility/ROM Last Seen Last Seen: This patient was last seen in our office 10/20/24. Pertinent comments regarding their Physical therapy will appear below: DC PT At this point I will be discontinuing this patient from physical therapy. I would be happy to see this patient again in the future if found appropriate by the physician. Thank you! Angelica De La Fuente, LUCI Balance/Gait/Functional tests Balance/Special Test Scores Oswestry Neck Score: 8
== END 2024-10-20 19:00 | disposition home or self-care (01) ==
LOC: PT 07:30
PROVIDERS: PCP Internal Medicine; Referring Provider Internal Medicine; Visit Provider Internal Medicine
DX: M54.12 Radiculopathy, cervical region (principal)
CPT/HCPCS: 97110; 97162

== ENCOUNTER → 2025-01-20 | Outpatient (CLI) | payer OTHER, SELFPAY ==
[2025-01-20 17:46] LABS: Hematocrit 43.4 % (37-47); Hemoglobin 14.7 g/dL (12.0-15.0); Immature Granulocytes Count 0.030 X10^3/uL (0.0-0.0); Mean Corp Hgb Conc 33.9 g/dL (32-36); Mean Corpuscular Volume 86.1 fL (81-99); Mean Platelet Vol. 11.1 fl (6.2-12.0); NRBC Flagged by Analyzer 0 % (0-5); Platelet Count 328 K/mm3 (150-450); RBC Distribution Width CV 13.1 % (11.6-14.6); RBC Distribution Width SD 40.2 fl (35.1-43.9); Red Blood Count 5.04 M/mm3 (4.2-5.4); White Blood Count 8.0 K/mm3 (4.4-11.0)
[2025-01-20 18:39] LABS: AST(SGOT) 20 U/L (<=31); Alanine Aminotransfer ALT/SGPT 14 U/L (<=34); Albumin, Serum 4.6 g/dL (3.5-5.0); Alkaline Phosphatase 69 U/L (35-104); Anion Gap 12 (5-15); BUN 15 mg/dL (4-19); BUN/Creat Ratio 13.2 RATIO (10-20); Calcium,Total 9.7 mg/dL (7.6-11.0); Carbon Dioxide 25.0 mmol/L (21.0-32.0); Chloride 103 mmol/L (98-108); Globulin 3.3 g/dL (2.2-4.2); Glucose 98 mg/dL (70-99); Potassium 3.5 mmol/L (3.3-5.1); Vitamin B12 550 pg/mL (180-914)
[2025-01-20 18:42] LABS: FOLATES,SERUM (FOLIC ACID) 14.30 ng/mL (4.60-34.80)
== END | disposition home or self-care (01) ==
PROVIDERS: PCP Internal Medicine; Referring Provider Internal Medicine; Visit Provider Internal Medicine
DX: R42 Dizziness and giddiness (principal); E03.9 Hypothyroidism, unspecified
CPT/HCPCS: 36415; 80053; 82607; 82746; 84443; 85025